=== PATIENT | female | born 1995 | race Caucasian/White ===

== ENCOUNTER 2017-08-15 17:10 | Emergency (ER) | payer SELFPAY ==
[~2017-08-15] VITALS: Ht 152.4 cm; Wt 38.6 kg
[~2017-08-15 17:10] MED LIST: ALPR0.25 PO; ONDA4TAB11 PO; ONDA4TAB8 PO; birth control PO
--- OUTSIDE RECORDS SUMMARY | 2017-08-15 17:17 | XMS REPORT ---
Author Author KESHA STEWART Organization [facility] Address [address] [place] [address] Care Team Providers Care Director Of Officiating Name Role Phone STEWART KESHA Unavailable PROBLEMS Type Condition ICD9-CM Code [id number] Code Onset Dates Condition Status SNOMED Code Problem History of anorexia nervosa Z86.59 Active 214006483 Problem Family history of diabetes mellitus Z83.3 Active 070315647 Problem Family history of heart disease Z82.49 Active 284112863 Problem Hx of self mutilation Z86.59 Active 861397603 Problem Dental caries K02.9 Active 60132961 Problem Heart palpitations R00.2 Active 82810049 Problem Malnutrition E46 Active 2607410 Problem Severe episode of recurrent major depressive disorder, without psychotic features F33.2 Active 20367706 Problem Routine health maintenance Z00.00 Active 383172149 Problem Dysuria R30.0 Active 38860641 Problem Generalized anxiety disorder F41.1 Active 73824280 Problem Major depression, chronic F32.9 Active 988213374 ALLERGIES Unknown Allergies SOCIAL HISTORY No smoking Hx information available PLAN OF CARE VITAL SIGNS MEDICATIONS Medication Instructions Dosage Frequency Start Date End Date Duration Status Atorvastatin Calcium 10 mg Orally Once a day 1 tablet 24h Mar, 30 day(s) Active RESULTS No Results PROCEDURES No Known procedures IMMUNIZATIONS No Known Immunizations
--- OUTSIDE RECORDS SUMMARY | 2017-08-15 17:17 | XMS REPORT ---
Author Author JIM REHMAN [facility] eClinicalWorks Address Unknown Phone Unavailable Care Team Providers Care Battery Stacker Name Role Phone JIM REHMAN CP Unavailable Allergies, Adverse Reactions, Alerts Substance Reaction Event Type N.K.D.A. Info Not Available Non Drug Allergy Problems Problem Type Condition Code Onset Dates Condition Status Problem History of recurrent UTIs Z87.440 Active Assessment Polyuria R35.8 Active Problem Polyuria R35.8 Active Assessment History of recurrent UTIs Z87.440 Active Medications Medication Code System Code Instructions Start Date End Date Status Dosage Iron [facility] [address] 325 (65 Fe) MG Orally Once a day 1 tablet Zyrtec Allergy [facility] [address]-51 10 MG Orally Once a day 1 tablet as needed AZO Cranberry [facility] [address] 250-30 MG Orally not defined Procedures Procedure Coding System Code Date Office Visit, New Pt., Level 4 CPT-4 81890 Jan 15, 2015 URINALYSIS, AUTO, W/O SCOPE CPT-4 90269 Jan 15, 2015 Vital Signs Date/Time: Jan 15, 2015 Temperature 98.2 F Weight 90.4 lbs Height 57 in BMI 19.56 Index Blood Pressure Diastolic 76 mmHg Blood Pressure Systolic 110 mmHg Cardiac Monitoring Heart Rate 88 bpm BMIPercentile 22.07 % Wt Percentile 0.27 % Results No Known Results Summary Purpose eClinicalWorks Submission
--- OUTSIDE RECORDS SUMMARY | 2017-08-15 17:17 | XMS REPORT ---
Author Author GABRIEL Walters Organization [facility] Address Unknown Care Team Providers Care Account Maintenance Representative Name Role Phone brittneeGABRIEL Brambila Unavailable PROBLEMS Type Condition ICD9-CM Code [id number] Code Onset Dates Condition Status SNOMED Code Problem History of anorexia nervosa Z86.59 Active 607880039 Problem Family history of diabetes mellitus Z83.3 Active 866980163 Problem Family history of heart disease Z82.49 Active 418477175 Problem Hx of self mutilation Z86.59 Active 627070231 Problem Dental caries K02.9 Active 52075588 Problem Heart palpitations R00.2 Active 11884636 Problem Malnutrition E46 Active 1427753 Problem Severe episode of recurrent major depressive disorder, without psychotic features F33.2 Active 71209723 Problem Routine health maintenance Z00.00 Active 911324428 Problem Dysuria R30.0 Active 14940323 Problem Generalized anxiety disorder F41.1 Active 94759140 Problem Major depression, chronic F32.9 Active 719249144 ALLERGIES Substance Reaction Event Type Date Status N.K.D.A. Unknown Non Drug Allergy Mar, Unknown SOCIAL HISTORY No smoking Hx information available PLAN OF CARE VITAL SIGNS Height 57 in 2016-03-24 Blood pressure systolic 123 mmHg 2016-03-24 Blood pressure diastolic 89 mmHg 2016-03-24 MEDICATIONS Medication Instructions Dosage Frequency Start Date End Date Duration Status Multi For Her - Active Iron 325 (65 Fe) MG Orally Once a day 1 tablet 24h Active Atorvastatin Calcium 10 mg Orally Once a day 1 tablet 24h Mar, 30 day(s) Active Zyrtec Allergy 10 MG Orally Once a day 1 tablet as needed 24h Active AZO Cranberry 250-30 MG Active RESULTS No Results PROCEDURES Procedure Date Ordered Related Diagnosis Body Site EXTRAC ERUPTED TOOTH/EXPOSED ROOT Mar 24, 2016 IMMUNIZATIONS No Known Immunizations
--- OUTSIDE RECORDS SUMMARY | 2017-08-15 17:17 | XMS REPORT ---
Author Author KESHA STEWART Organization [employer] Address Unknown Phone Unavailable Care Team Providers Care Pantograph Machine Set Up Operator Name Role Phone KESHA STEWART CP Unavailable Allergies, Adverse Reactions, Alerts Substance Reaction Event Type N.K.D.A. Info Not Available Non Drug Allergy Problems Problem Type Condition Code Onset Dates Condition Status Problem Personal history of urinary infection Z87.440 Active Problem Polyuria R35.8 Active Problem Hyperlipidemia, unspecified hyperlipidemia E78.5 Active Problem History of recurrent UTIs Z87.440 Active Medications Medication Code System Code Instructions Start Date End Date Status Dosage Zyrtec Allergy [facility] [address]-67 10 MG Orally Once a day 1 tablet as needed AZO Cranberry [facility] [address] 250-30 MG Orally not defined Multi For Her [facility] [address] - Orally not defined Results No Known Results Summary Purpose eClinicalWorks Submission
--- OUTSIDE RECORDS SUMMARY | 2017-08-15 17:17 | XMS REPORT ---
Author Author AMADO MACDONALD [facility] eClinicalWorks Address Unknown Phone Unavailable Care Team Providers Care Injection Molding Machine Offbearer Name Role Phone AMADO MACDONALD CP Unavailable Allergies No Known Allergies Problems Problem Type Condition Code Onset Dates Condition Status Problem Personal history of urinary infection Z87.440 Active Problem Polyuria R35.8 Active Problem Hyperlipidemia, unspecified hyperlipidemia E78.5 Active Problem History of recurrent UTIs Z87.440 Active Assessment Personal history of urinary infection Z87.440 Active Medications No Known Medications Procedures Procedure Coding System Code Date URINE CULTURE/COLONY COUNT CPT-4 63566 Feb 20, 2015 Results No Known Results Summary Purpose eClinicalWorks Submission
--- OUTSIDE RECORDS SUMMARY | 2017-08-15 17:17 | XMS REPORT ---
Author Author GABRIEL Walters [facility] Address Unknown Care Team Providers Care Pizzamaker Name Role Phone brittneePatty GABRIEL Unavailable PROBLEMS Type Condition ICD9-CM Code [id number] Code Onset Dates Condition Status SNOMED Code Problem History of anorexia nervosa Z86.59 Active 125125052 Problem Family history of diabetes mellitus Z83.3 Active 328513688 Problem Family history of heart disease Z82.49 Active 996540301 Problem Hx of self mutilation Z86.59 Active 785227319 Problem Dental caries K02.9 Active 28081804 Problem Heart palpitations R00.2 Active 55450580 Problem Malnutrition E46 Active 6831212 Problem Severe episode of recurrent major depressive disorder, without psychotic features F33.2 Active 78722261 Problem Routine health maintenance Z00.00 Active 900121097 Problem Dysuria R30.0 Active 64449654 Problem Generalized anxiety disorder F41.1 Active 31726050 Problem Major depression, chronic F32.9 Active 417989936 ALLERGIES Substance Reaction Event Type Date Status N.K.D.A. Unknown Non Drug Allergy Mar, Unknown SOCIAL HISTORY No smoking Hx information available PLAN OF CARE Activity Details Follow Up prn Reason:te/filling VITAL SIGNS Height 57 in 2016-03-11 Blood pressure systolic 121 mmHg 2016-03-11 Blood pressure diastolic 84 mmHg 2016-03-11 MEDICATIONS Medication Instructions Dosage Frequency Start Date End Date Duration Status Zyrtec Allergy 10 MG Orally Once a day 1 tablet as needed 24h Active [place] 5-325 MG Orally every 6 hrs 1 tablet as needed 6h Mar, Mar, 4 days Active Amoxicillin 500 MG Orally Four times a day 1 capsule 6h Mar, Mar, 7 days Active RESULTS No Results PROCEDURES Procedure Date Ordered Related Diagnosis Body Site LTD ORAL EVALUATION - PROBLEM FOCUS Mar 11, 2016 INTRAORL-PERIAPICAL 1 FILM 30580 Mar 11, 2016 BITEWINGS - TWO FILMS Mar 11, 2016 INTRAORL-PERIAPICAL EA ADD FILM Mar 11, 2016 IMMUNIZATIONS No Known Immunizations
--- OUTSIDE RECORDS SUMMARY | 2017-08-15 17:17 | XMS REPORT ---
Author Author GABRIEL MAYA [facility] Address [address] [place] [address] Care Team Providers Care Engine Lathe Set Up Operator Name Role Phone GABRIEL MAYA Unavailable PROBLEMS Type Condition ICD9-CM Code [id number] Code Onset Dates Condition Status SNOMED Code Problem History of anorexia nervosa Z86.59 Active 628427605 Problem Family history of diabetes mellitus Z83.3 Active 285013334 Problem Family history of heart disease Z82.49 Active 414237138 Problem Hx of self mutilation Z86.59 Active 455905180 Problem Dental caries K02.9 Active 03296628 Problem Heart palpitations R00.2 Active 58290531 Problem Malnutrition E46 Active 5908733 Problem Severe episode of recurrent major depressive disorder, without psychotic features F33.2 Active 76612642 Problem Routine health maintenance Z00.00 Active 010276910 Problem Dysuria R30.0 Active 80061796 Problem Generalized anxiety disorder F41.1 Active 66141882 Problem Major depression, chronic F32.9 Active 988646922 ALLERGIES Unknown Allergies SOCIAL HISTORY No smoking Hx information available PLAN OF CARE Activity Details Follow Up 2 Weeks Reason:Depression, anxiety VITAL SIGNS MEDICATIONS Unknown Medications RESULTS No Results PROCEDURES Procedure Date Ordered Related Diagnosis Body Site Psychotherapy, patient &/family, 30 minutes, established patient Mar 24, 2016 IMMUNIZATIONS No Known Immunizations
--- OUTSIDE RECORDS SUMMARY | 2017-08-15 17:17 | XMS REPORT ---
Author AMADO Azar [facility] eClinicalWorks Address Unknown Phone Unavailable Care Team Providers Care Laydown Machine Operator Name Role Phone AMADO MACDONALD Unavailable Allergies No Known Allergies Problems Problem Type Condition Code Onset Dates Condition Status Problem Polyuria R35.8 Active Problem History of recurrent UTIs Z87.440 Active Problem Personal history of urinary infection Z87.440 Active Assessment Personal history of urinary infection Z87.440 Active Medications No Known Medications Results No Known Results Summary Purpose eClinicalWorks Submission
--- OUTSIDE RECORDS SUMMARY | 2017-08-15 17:17 | XMS REPORT ---
Author Author GABRIEL MAYA [facility] Address [address] [place] [address] Care Team Providers Care Horizontal Boring Mill Operator Name Role Phone GABRIEL MAYA Unavailable PROBLEMS Type Condition ICD9-CM Code VSI26-IR Code Onset Dates Condition Status SNOMED Code Problem History of anorexia nervosa Z86.59 Active 460983232 Problem Family history of diabetes mellitus Z83.3 Active 003756236 Problem Family history of heart disease Z82.49 Active 469182951 Problem Hx of self mutilation Z86.59 Active 120255403 Problem Dental caries K02.9 Active 59040728 Problem Heart palpitations R00.2 Active 12818025 Problem Malnutrition E46 Active 5456175 Problem Severe episode of recurrent major depressive disorder, without psychotic features F33.2 Active 81501254 Problem Routine health maintenance Z00.00 Active 683770748 Problem Dysuria R30.0 Active 97010401 Problem Generalized anxiety disorder F41.1 Active 31027878 Problem Major depression, chronic F32.9 Active 810544164 ALLERGIES Unknown Allergies SOCIAL HISTORY No smoking Hx information available PLAN OF CARE Activity Details Follow Up 2 Weeks Reason:Depression VITAL SIGNS MEDICATIONS Unknown Medications RESULTS No Results PROCEDURES Procedure Date Ordered Related Diagnosis Body Site Psychotherapy, patient &/family, 30 minutes, established patient Apr 01, 2016 IMMUNIZATIONS No Known Immunizations
--- OUTSIDE RECORDS SUMMARY | 2017-08-15 17:18 | XMS REPORT ---
Author Author GABRIEL MAYA [facility] Address [address] [place] [address] Care Team Providers Care Party Host Name Role Phone GABRIEL MAYA Unavailable PROBLEMS Type Condition ICD9-CM Code [id number] Code Onset Dates Condition Status SNOMED Code Problem Dental caries K02.9 Active 32715141 Problem History of anorexia nervosa Z86.59 Active 791802181 Problem Heart palpitations R00.2 Active 12071414 Assessment Severe episode of recurrent major depressive disorder, without psychotic features F33.2 Mar, Active 61171268 Problem Hx of self mutilation Z86.59 Active 042962090 Problem Severe episode of recurrent major depressive disorder, without psychotic features F33.2 Active 14621375 Problem Generalized anxiety disorder F41.1 Active 63762558 Problem Family history of diabetes mellitus Z83.3 Active 099879456 Problem Family history of heart disease Z82.49 Active 714059875 Problem Routine health maintenance Z00.00 Active 255418456 Problem Dysuria R30.0 Active 08433153 ALLERGIES Unknown Allergies SOCIAL HISTORY No smoking Hx information available PLAN OF CARE VITAL SIGNS MEDICATIONS Unknown Medications RESULTS No Results PROCEDURES Procedure Date Ordered Related Diagnosis Body Site Psych diagnostic evaluation, new patient Mar 12, 2016 IMMUNIZATIONS No Known Immunizations
--- OUTSIDE RECORDS SUMMARY | 2017-08-15 17:18 | XMS REPORT ---
Author Author JIM REHMAN [facility] eClinicalWorks Address Unknown Phone Unavailable Care Team Providers Care Plant Custodian Name Role Phone JIM REHMAN CP Unavailable Allergies No Known Allergies Problems Problem Type Condition Code Onset Dates Condition Status Problem History of recurrent UTIs Z87.440 Active Assessment Polyuria R35.8 Active Problem Polyuria R35.8 Active Assessment History of recurrent UTIs Z87.440 Active Medications No Known Medications Procedures Procedure Coding System Code Date COMPREHEN METABOLIC PANEL CPT-4 91844 Jan 16, 2015 ASSAY THYROID STIM HORMONE CPT-4 12395 Jan 16, 2015 COMPLETE CBC W/AUTO DIFF WBC CPT-4 36766 Jan 16, 2015 VENIPUNCT, ROUTINE* CPT-4 72654 Jan 16, 2015 LIPID PANEL CPT-4 12506 Jan 16, 2015 Results Name Result Date Reference Range Unit Abnormality Flag ROUTINE VENIPUNCTURE Summary Purpose eClinicalWorks Submission
--- OUTSIDE RECORDS SUMMARY | 2017-08-15 17:18 | XMS REPORT ---
Author Author GABRIEL MAYA [facility] Address [address] [place] [address] Care Team Providers Care Job Analysis Manager Name Role Phone GABRIEL MAYA Unavailable PROBLEMS Type Condition ICD9-CM Code BEZ05-CS Code Onset Dates Condition Status SNOMED Code Problem History of anorexia nervosa Z86.59 Active 933118613 Problem Family history of diabetes mellitus Z83.3 Active 547294197 Problem Family history of heart disease Z82.49 Active 159340572 Problem Hx of self mutilation Z86.59 Active 518399831 Problem Dental caries K02.9 Active 08408647 Problem Heart palpitations R00.2 Active 11675504 Problem Malnutrition E46 Active 1570164 Problem Severe episode of recurrent major depressive disorder, without psychotic features F33.2 Active 03076190 Problem Routine health maintenance Z00.00 Active 569943075 Problem Dysuria R30.0 Active 26082402 Problem Generalized anxiety disorder F41.1 Active 19309010 Problem Major depression, chronic F32.9 Active 415697399 ALLERGIES Unknown Allergies SOCIAL HISTORY No smoking Hx information available PLAN OF CARE Activity Details Follow Up 1 Week Reason:Depression VITAL SIGNS MEDICATIONS Unknown Medications RESULTS No Results PROCEDURES Procedure Date Ordered Related Diagnosis Body Site Psychotherapy, patient &/family, 30 minutes, established patient Mar 17, 2016 IMMUNIZATIONS No Known Immunizations
--- OUTSIDE RECORDS SUMMARY | 2017-08-15 17:18 | XMS REPORT ---
Author Author JIM REHMAN [facility] eClinicalWorks Address Unknown Phone Unavailable Care Team Providers Care Community Planner Name Role Phone JIM REHMAN CP Unavailable Allergies No Known Allergies Problems Problem Type Condition Code Onset Dates Condition Status Problem Personal history of urinary infection Z87.440 Active Problem Polyuria R35.8 Active Problem Hyperlipidemia, unspecified hyperlipidemia E78.5 Active Problem History of recurrent UTIs Z87.440 Active Assessment Hyperlipidemia, unspecified hyperlipidemia E78.5 Active Medications No Known Medications Results No Known Results Summary Purpose eClinicalWorks Submission
--- OUTSIDE RECORDS SUMMARY | 2017-08-15 17:18 | XMS REPORT | Continuity of Care Document ---
Author Author [facility] Address Unknown Phone Unavailable Allergies Active Description Code Type Severity Reaction Onset Reported/Identified Relationship to Patient Clinical Status Yes NKANo Known Allergies NKA Miscellaneous Allergy Mild N/A 10/28/2008 Medications There is no data. Problems Date Dx Coded Attending Type Code Diagnosis Diagnosed By 07/25/2013 DANIEL AGUILAR APRN 626.0 ABSENCE OF MENSTRUATION 07/25/2013 AMADO MACDONALD DO 626.0 ABSENCE OF MENSTRUATION 07/25/2013 YASMIN CASHKIMI REJOGGER, MERRY N 626.0 ABSENCE OF MENSTRUATION 07/25/2013 RAJOTTE REJOGGER, NAMRATA A 626.0 ABSENCE OF MENSTRUATION 07/25/2013 RAJOTTE REJOGGER, NAMRATA A 626.0 ABSENCE OF MENSTRUATION 09/05/2013 AMADO MACDONALD DO K V74.1 TB SCREENING 09/05/2013 HOFFMAN CASHERO REJOGGER, MERRY N V74.1 TB SCREENING 09/05/2013 RAJOTTE REJOGGER, NAMRATA A V74.1 TB SCREENING 09/05/2013 RAJOTTE REJOGGER, NAMRATA A V74.1 TB SCREENING 04/17/2014 HOFFMAN CASHERO REJOGGER, MERRY N 780.60 FEVER UNSPECIFIED 04/17/2014 HOFFMAN CASHERO REJOGGER, MERRY N 786.2 COUGH 04/17/2014 HOFFMAN CASHERO REJOGGER, MERRY N 788.1 DYSURIA 04/17/2014 RAJOTTE REJOGGER, NAMRATA A 780.60 FEVER UNSPECIFIED 04/17/2014 RAJOTTE REJOGGER, NAMRATA A 786.2 COUGH 04/17/2014 RAJOTTE REJOGGER, NAMRATA A 788.1 DYSURIA 04/17/2014 RAJOTTE REJOGGER, NAMRATA A 780.60 FEVER UNSPECIFIED 04/17/2014 RAJOTTE REJOGGER, NAMRATA A 786.2 COUGH 04/17/2014 RAJOTTE REJOGGER, NAMRATA A 788.1 DYSURIA 06/27/2014 LLOYD PEREA, NAMRATA A 692.9 DERMATITIS CONTACT UNSPECIFIED 06/27/2014 LLOYD REJOGGER, NAMRATA A 692.9 DERMATITIS CONTACT UNSPECIFIED 07/11/2014 NAMRATA DESAI APRN A V03.89 MENINGOCOCCAL DX 01/01/2015 LESLIE ESQUIVEL AYLIN Kim Ot 427.89 CARDIAC DYSRHYTHMIAS NEC 01/01/2015 LESLIE ESQUIVEL AYLIN K Ot 787.01 NAUSEA WITH VOMITING 01/01/2015 SHAI NELSON DOA K Ot 790.29 OTHER ABNORMAL GLUCOSE 02/16/2015 ALEXANDRA AMAYA, PATRICIA A Ot F12.10 CANNABIS ABUSE, UNCOMPLICATED 02/16/2015 ALEXANDRA AMAYA, PATRICIA A Ot F17.210 NICOTINE DEPENDENCE, CIGARETTES, UNCOMPL 02/16/2015 ALEXANDRA AMAYA, PATRICIA A Ot R10.9 UNSPECIFIED ABDOMINAL PAIN 02/16/2015 PATRICIA MORRIS MD A Ot R11.2 NAUSEA WITH VOMITING, UNSPECIFIED 01/01/2016 LUCAS ENRIQUE Ot F17.210 NICOTINE DEPENDENCE, CIGARETTES, UNCOMPL 01/01/2016 LUCAS ENRIQUE Ot K92.0 HEMATEMESIS 01/01/2016 LUCAS ENRIQUE Ot R10.31 RIGHT LOWER QUADRANT PAIN 01/01/2016 LUCAS ENRIQUE Ot R11.2 NAUSEA WITH VOMITING, UNSPECIFIED 01/01/2016 LUCAS ENRIQUE Ot R19.7 DIARRHEA, UNSPECIFIED 01/02/2016 LUCAS ENRIQUE Ot F17.210 NICOTINE DEPENDENCE, CIGARETTES, UNCOMPL 01/02/2016 LUCAS ENRIQUE Ot K92.0 HEMATEMESIS 01/02/2016 LUCAS ENRIQUE Ot R10.31 RIGHT LOWER QUADRANT PAIN 01/02/2016 LUCAS ENRIQUE Ot R11.2 NAUSEA WITH VOMITING, UNSPECIFIED 01/02/2016 LUCAS ENRIQUE Ot R19.7 DIARRHEA, UNSPECIFIED Procedures Code [place] [address] TEST, URINE (IN- HOUSE) 07/25/2013 57548 ROUTINE VENIPUNCTURE 07/26/2013 30358 CBC 07/26/2013 31482 CMP 07/26/2013 8251803 GFR CALC (RESULT ONLY) 07/26/2013 67235 TSH 07/26/2013 37932 INSULIN LEVEL 07/27/2013 07488 TB TEST INTRADERMAL 09/05/2013 50131 INFLUENZA A & B (IN-HOUSE) 04/17/2014 Results Test Result Range Urine beta human chorionic gonadotropin (hCG) measurement - 01/01/16 17:27 Urine beta human chorionic gonadotropin (hCG) measurement NEGATIVE NEGATIVE Complete urinalysis with reflex to culture - 01/01/16 17:27 Urine color determination YELLOW NRG Urine clarity determination CLEAR NRG Urine pH measurement by test strip 7 5-9 Specific gravity of urine by test strip 1.005 1.016- 1.022 Urine protein assay by test strip, semi-quantitative NEGATIVE NEGATIVE Urine glucose detection by automated test strip NEGATIVE NEGATIVE Erythrocytes detection in urine sediment by light microscopy NEGATIVE NEGATIVE Urine ketones detection by automated test strip NEGATIVE NEGATIVE Urine nitrite detection by test strip NEGATIVE NEGATIVE Urine total bilirubin detection by test strip NEGATIVE NEGATIVE Urine urobilinogen measurement by automated test strip (mass/volume) NORMAL NORMAL Urine leukocyte esterase detection by dipstick 1+ NEGATIVE Automated urine sediment erythrocyte count by microscopy (number/high power field) NONE NRG Automated urine sediment leukocyte count by microscopy (number/high power field ) [HPF] NRG Bacteria detection in urine sediment by light microscopy FEW NRG Squamous epithelial cells detection in urine sediment by light microscopy 10-25 NRG Crystals detection in urine sediment by light microscopy NONE NRG Casts detection in urine sediment by light microscopy NONE NRG Mucus detection in urine sediment by light microscopy NEGATIVE NRG Complete urinalysis with reflex to culture NO NRG Complete blood count (CBC) with automated white blood cell (WBC) differential - 01/01/16 18:45 Blood leukocytes automated count (number/volume) 8.5 10*3/uL 4.3-11.0 Blood erythrocytes automated count (number/volume) 4.73 10*6/uL 4.35-5.85 Venous blood hemoglobin measurement (mass/volume) 14.2 g/dL 11.5-16.0 Blood hematocrit (volume fraction) 41 % 35-52 Automated erythrocyte mean corpuscular volume 88 [foz_us] 80-99 Automated erythrocyte mean corpuscular hemoglobin (mass per erythrocyte) 30 pg 25-34 Automated erythrocyte mean corpuscular hemoglobin concentration measurement ( mass/volume) 34 g/dL 32-36 Automated erythrocyte distribution width ratio 12.0 % 10.0-14.5 Automated blood platelet count (count/volume) 361 10*3/uL 130-400 Automated blood platelet mean volume measurement 10.5 [foz_us] 7.4-10.4 Automated blood neutrophils/100 leukocytes 72 % 42-75 Automated blood lymphocytes/100 leukocytes 21 % 12-44 Blood monocytes/100 leukocytes 5 % 0-12 Automated blood eosinophils/100 leukocytes 1 % 0-10 Automated blood basophils/100 leukocytes 0 % 0-10 Blood neutrophils automated count (number/volume) 6.1 10*3 1.8-7.8 Blood lymphocytes automated count (number/volume) 1.8 10*3 1.0-4.0 Blood monocytes automated count (number/volume) 0.4 10*3 0.0-1.0 Automated eosinophil count 0.1 10*3/uL 0.0-0.3 Automated blood basophil count (count/volume) 0.0 10*3/uL 0.0-0.1 PT panel in platelet poor plasma by coagulation assay - 01/01/16 18:45 Prothrombin time (PT) in platelet poor plasma by coagulation assay 13.0 s 12.2-14.7 INR in platelet poor plasma or blood by coagulation assay 1.0 0.8-1.4 Activated partial thromboplastin time (aPTT) in platelet poor plasma bycoagulation assay - 01/01/16 18:45 Activated partial thromboplastin time (aPTT) in platelet poor plasma bycoagulation assay 29 s 24-35 Comprehensive metabolic panel - 01/01/16 18:45 Serum or plasma sodium measurement (moles/volume) 144 mmol/L 135-145 Serum or plasma potassium measurement (moles/volume) 3.6 mmol/L 3.6-5.0 Serum or plasma chloride measurement (moles/volume) 106 mmol/L 98-107 Carbon dioxide 24 mmol/L 21-32 Serum or plasma anion gap determination (moles/volume) 14 mmol/L 5-14 Serum or plasma urea nitrogen measurement (mass/volume) 6 mg/dL 7-18 Serum or plasma creatinine measurement (mass/volume) 0.76 mg/dL 0.60-1.30 Serum or plasma urea nitrogen/creatinine mass ratio 8 NRG Serum or plasma creatinine measurement with calculation of estimated glomerular filtration rate > NRG Serum or plasma glucose measurement (mass/volume) 96 mg/dL 70-105 Serum or plasma calcium measurement (mass/volume) 10.4 mg/dL 8.5-10.1 Serum or plasma total bilirubin measurement (mass/volume) 0.2 mg/dL 0.1-1.0 Serum or plasma alkaline phosphatase measurement (enzymatic activity/volume) 91 U/L 40-136 Serum or plasma aspartate aminotransferase measurement (enzymatic activity/ volume) 20 U/L 5-34 Serum or plasma alanine aminotransferase measurement (enzymatic activity/volume ) 33 U/L 0-55 Serum or plasma protein measurement (mass/volume) 7.4 g/dL 6.4-8.2 Serum or plasma albumin measurement (mass/volume) 4.7 g/dL 3.2-4.5 CBC With Differential/Platelet - 03/12/16 12:08 WBC 8.0 x10E3/uL 3.4-10.8 RBC 4.88 x10E6/uL 3.77-5.28 Hemoglobin 14.9 g/dL 11.1-15.9 Hematocrit 42.9 % 34.0-46.6 MCV 88 fL 79-97 MCH 30.5 pg 26.6-33.0 MCHC 34.7 g/dL 31.5-35.7 RDW 12.6 % 12.3-15.4 Platelets 378 x10E3/uL 150-379 Neutrophils 71 % Lymphs 21 % Monocytes 7 % Eos 1 % Basos 0 % Neutrophils (Absolute) 5.7 x10E3/uL 1.4-7.0 Lymphs (Absolute) 1.6 x10E3/uL 0.7-3.1 Monocytes(Absolute) 0.5 x10E3/uL 0.1-0.9 Eos (Absolute) 0.1 x10E3/uL 0.0-0.4 Baso (Absolute) 0.0 x10E3/uL 0.0-0.2 Immature Granulocytes 0 % Immature Grans (Abs) 0.0 x10E3/uL 0.0-0.1 Comp. Metabolic Panel (14) - 03/12/16 12:08 Glucose, Serum 115 mg/dL 65-99 BUN 12 mg/dL 6-20 Creatinine, Serum 0.79 mg/dL 0.57-1.00 eGFR If NonAfricn Am 108 mL/min/1.73 >59 eGFR If Africn Am 125 mL/min/1.73 >59 BUN/Creatinine Ratio 15 8-20 Sodium, Serum 142 mmol/L 136-144 Potassium, Serum 4.1 mmol/L 3.5-5.2 Chloride, Serum 98 mmol/L 97-106 Carbon Dioxide, Total 28 mmol/L 18-29 Calcium, Serum 10.4 mg/dL 8.7-10.2 Protein, Total, Serum 7.9 g/dL 6.0-8.5 Albumin, Serum 5.1 g/dL 3.5-5.5 Globulin, Total 2.8 g/dL 1.5-4.5 A/G Ratio 1.8 1.1-2.5 Bilirubin, Total 0.3 mg/dL 0.0-1.2 Alkaline Phosphatase, S 114 IU/L 39-117 AST (SGOT) 16 IU/L 0-40 ALT (SGPT) 10 IU/L 0-32 Lipid Panel - 03/12/16 12:08 Cholesterol, Total 299 mg/dL 100-199 Triglycerides 108 mg/dL 0-149 HDL Cholesterol 71 mg/dL >39 VLDL Cholesterol Vasyl 22 mg/dL 5-40 LDL Cholesterol Calc 206 mg/dL 0-99 Comment: Comment Hemoglobin A1c - 03/12/16 12:08 Hemoglobin A1c 5.4 % 4.8-5.6 Folate (Folic Acid), Serum - 03/12/16 12:08 Folate (Folic Acid), Serum >20.0 ng/mL >3.0 Vitamin D, 25-Hydroxy - 03/12/16 12:08 Vitamin D, 25-Hydroxy 32.5 ng/mL 30.0-100.0 Thyroid Buchanan Profile - 03/12/16 12:08 TSH 0.670 uIU/mL 0.450-4.500 Vitamin B12 - 03/12/16 12:08 Vitamin B12 358 pg/mL 211-946 Urine Culture, Routine - 03/12/16 12:08 Urine Culture, Routine Note Urinalysis, Complete - 01/18/17 14:26 Specific [place] 1.009 1.005-1.030 pH 6.5 5.0-7.5 Urine-Color Yellow Yellow Appearance Clear Clear WBC Esterase Trace Negative Protein Negative Negative/Trace Glucose Negative Negative Ketones Negative Negative Occult Blood 2+ Negative Bilirubin Negative Negative Urobilinogen,Semi-Qn 0.2 mg/dL 0.2-1.0 Nitrite, Urine Negative Negative Microscopic Examination See below: Microscopic Examination - 01/18/17 14:26 WBC 0-5 /hpf 0 - 5 RBC 0-2 /hpf 0 - 2 Epithelial Cells (non renal) 0-10 /hpf 0 - 10 Bacteria Few None seen/Few UA W/ MICROSCOPY - 01/18/17 14:26 Specific [place] 1.009 1.005-1.030 pH 6.5 5.0-7.5 Urine-Color Yellow Yellow Appearance Clear Clear WBC Esterase Trace Negative Protein Negative Negative/Trace Glucose Negative Negative Ketones Negative Negative Occult Blood 2+ Negative Bilirubin Negative Negative Urobilinogen,Semi-Qn 0.2 mg/dL 0.2-1.0 Nitrite, Urine Negative Negative Microscopic Examination See below: NRG WBC 0-5 /hpf 0 - 5 RBC 0-2 /hpf 0 - 2 Epithelial Cells (non renal) 0-10 /hpf 0 - 10 Mucus Threads NRG Bacteria Few None seen/Few Epithelial Cells (renal) NRG Casts NRG Cast Type NRG Crystals NRG Crystal Type NRG Yeast NRG Trichomonas NRG Comment NRG CBC With Differential/Platelet - 01/22/17 14:26 WBC 12.0 x10E3/uL 3.4-10.8 RBC 4.58 x10E6/uL 3.77-5.28 Hemoglobin 13.7 g/dL 11.1-15.9 Hematocrit 41.2 % 34.0-46.6 MCV 90 fL 79-97 MCH 29.9 pg 26.6-33.0 MCHC 33.3 g/dL 31.5-35.7 RDW 13.3 % 12.3-15.4 Platelets 359 x10E3/uL 150-379 Neutrophils 78 % Not Estab. Lymphs 13 % Not Estab. Monocytes 8 % Not Estab. Eos 1 % Not Estab. Basos 0 % Not Estab. Neutrophils (Absolute) 9.3 x10E3/uL 1.4-7.0 Lymphs (Absolute) 1.6 x10E3/uL 0.7-3.1 Monocytes(Absolute) 1.0 x10E3/uL 0.1-0.9 Eos (Absolute) 0.1 x10E3/uL 0.0-0.4 Baso (Absolute) 0.0 x10E3/uL 0.0-0.2 Immature Granulocytes 0 % Not Estab. Immature Grans (Abs) 0.0 x10E3/uL 0.0-0.1 Comp. Metabolic Panel (14) - 01/22/17 14:26 Glucose, Serum 93 mg/dL 65-99 BUN 11 mg/dL 6-20 Creatinine, Serum 0.74 mg/dL 0.57-1.00 eGFR If NonAfricn Am 116 mL/min/1.73 >59 eGFR If Africn Am 134 mL/min/1.73 >59 BUN/Creatinine Ratio 15 9-23 Sodium, Serum 141 mmol/L 134-144 Potassium, Serum 4.7 mmol/L 3.5-5.2 Chloride, Serum 100 mmol/L 96-106 Carbon Dioxide, Total 24 mmol/L 18-29 Calcium, Serum 9.6 mg/dL 8.7-10.2 Protein, Total, Serum 6.8 g/dL 6.0-8.5 Albumin, Serum 4.5 g/dL 3.5-5.5 Globulin, Total 2.3 g/dL 1.5-4.5 A/G Ratio 2.0 1.2-2.2 Bilirubin, Total 0.3 mg/dL 0.0-1.2 Alkaline Phosphatase, S 101 IU/L 39-117 AST (SGOT) 28 IU/L 0-40 ALT (SGPT) 41 IU/L 0-32 Lipid Panel - 01/22/17 14:26 Cholesterol, Total 215 mg/dL 100-199 Triglycerides 114 mg/dL 0-149 HDL Cholesterol 60 mg/dL >39 VLDL Cholesterol Vasyl 23 mg/dL 5-40 LDL Cholesterol Calc 132 mg/dL 0-99 Hemoglobin A1c - 01/22/17 14:26 Hemoglobin A1c 5.3 % 4.8-5.6 Thyroid Buchanan Profile - 01/22/17 14:26 TSH 0.332 uIU/mL 0.450-4.500 Thyroxine (T4) Free, Direct, S - 01/22/17 14:26 T4,Free (Direct) 1.03 ng/dL 0.82-1.77 T3Free - 01/22/17 14:26 Triiodothyronine, Free, Serum 3.2 pg/mL 2.0-4.4 Interpretive Comment Comment A1C - 01/22/17 14:26 Hemoglobin A1c 5.3 % 4.8-5.6 Encounters ACCT No. Visit Date/Time Discharge Status Pt. Type Provider Facility Loc./Unit Complaint [id number] 07/11/2014 13:25:00 07/11/2014 23:59:59 CLS Outpatient NAMRATA DESAI APRN [id number] 06/27/2014 09:37:00 06/27/2014 23:59:59 CLS Outpatient NAMRATA DESAI APRN [id number] 04/17/2014 10:27:00 04/17/2014 23:59:59 CLS Outpatient MERRY MAGANA APRN [place] [id number] 09/05/2013 12:19:00 09/05/2013 23:59:59 CLS Outpatient TORRES ESQUIVEL AMADO K [id number] 07/26/2013 08:05:00 07/26/2013 23:59:59 CLS Outpatient ZOILA AGUILAR APRNDENISE Duncan [id number] 03/13/2016 13:06:00 Document Registration [id number] 03/14/2016 07:06:00 Document Registration [id number] 01/25/2017 17:07:00 Document Registration [id number] 12/31/2014 23:07:14 ACT Document Registration [id number] 01/01/2016 17:22:00 01/01/2016 19:51:00 DIS Emergency LUCAS ENRIQUE [facility] ER VOMITING BLOOD [id number] 02/16/2015 01:27:00 02/16/2015 02:50:00 DIS Emergency PATRICIA MORRIS MD [facility] ER VOMITING,SHAKEY,ANXIETY [id number] 12/31/2014 23:06:00 01/01/2015 01:25:00 DIS Emergency LESLIE DOAYLIN K [facility] ER VOMITING [id number] 01/19/2017 10:10:00 Document Registration [id number] 05/21/2017 15:55:00 05/21/2017 23:59:59 CLS Outpatient KESHA [facility] [id number] 01/22/2017 10:40:00 Document Registration [id number] 01/18/2017 13:40:00 Document Registration
--- OUTSIDE RECORDS SUMMARY | 2017-08-15 17:18 | XMS REPORT ---
Author Author Karly Weiner Organization [facility] Address [address] [place], [place] [id number] Care Team Providers Care Joy Operator Helper Name Role Phone Karly Weiner PCP Unavailable Allergies and Adverse Reactions Name Reaction Notes No known drug allergy Plan of Treatment Not available. Medications Not available. Problem List Not available. Vital Signs Date Time BP-Sys(mm[Hg] BP-Kierra(mm[Hg]) HR(bpm) RR(rpm) Temp WT HT HC BMI BSA BMI Percentile O2 Sat(%) 01/22/2017 7:10:00 PM 110 mmHg 68 mmHg 102 bpm 18 rpm 99 F 83 lbs 57 in 17.96 kg/m2 1.23 m2 97 % Social History Name Description Comments Tobacco Never smoker Alcohol Never History of Procedures Date Ordered Description Order Status 01/22/2017 12:00 AM X-RAY EXAM BREASTBONE 2/>VWS Reviewed 01/22/2017 12:00 AM X-RAY EXAM UNILAT RIBS/CHEST Reviewed Results Summary Not available. History Of Immunizations Not available. History of Past Illness Name Date of Onset Comments Sternum pain Jan 22 2017 7:14PM Clavicle pain Jan 22 2017 7:14PM Payers Not available. History of Encounters Visit Date Visit Type Provider 01/22/2017 Office visit Karly Weiner APRN
[2017-08-15] MEDS ORDERED: SULF1TAB35 PO (17:32)
--- NOTE | 2017-08-15 17:33 | ED Integumentary General ---
General Chief Complaint: Skin/Wound Problems Stated Complaint: TICKS Source: patient Exam Limitations: no limitations History of Present Illness Date Seen by Provider: August 15, 2017 Time Seen by Provider: 17:29 Initial Comments To ER with complaints of "cedar ticks" . She denies actually having seen the ticks, only has itchy sores all over that began yesterday. She's been applying black fingernail azeri to all of these sores so it is very difficult to actually evaluate the lesions. No fevers or chills. She denies drug use. Timing/Duration: just prior to arrival, yesterday Severity: moderate Possible Cause: insect bite Allergies and Home Medications Allergies Coded Allergies: NKANo Known Allergies (Unverified Allergy, Mild, 10/28/08) Home Medications Alprazolam 0.25 Mg Tablet, 0.25 MG PO TID PRN for ANXIETY Prescribed by: PATRICIA MORRIS on 02/16/15 0247 Ondansetron 4 Mg Tab.rapdis, 4 MG PO Q6H PRN for NAUSEA/VOMITING Prescribed by: LUCAS FRANCO on 01/01/16 1940 Patient Home Medication List Home Medication List Reviewed: Yes Constitutional: see HPI EENTM: see HPI Respiratory: no symptoms reported Cardiovascular: no symptoms reported Genitourinary: no symptoms reported Musculoskeletal: no symptoms reported Skin: see HPI Psychiatric/Neurological: No Symptoms Reported Past Dctdlyi-Fnmmik-Deqlzp Hx Patient Social History Type Used: Cigarettes Recent Foreign Travel: No Contact w/Someone Who Travel: No Recent Hopitalizations: No Seasonal Allergies Seasonal Allergies: No Past Medical History Adenoidectomy, Tonsillectomy Reproductive Disorders: No Female Reproductive Disorders: Denies Adverse Reaction/Blood Tranf: No Family Medical History No Pertinent Family Hx Physical Exam Vital Signs Capillary Refill : General Appearance: WD/WN, no apparent distress HEENT: PERRL/EOMI, normal ENT inspection Neck: non-tender, full range of motion Respiratory: normal breath sounds, no respiratory distress, no accessory muscle use Gastrointestinal: normal bowel sounds, non tender, soft Neurologic/Psychiatric: alert, normal mood/affect, oriented x 3 Skin: normal color, warm/dry, other (Multiple superficial sores to the posterior shoulders, chest forearms. Again it's very difficult to evaluate these because she has covered all of them in black fingernail azeri. There are no abscesses.) Departure Impression Primary Impression: Skin lesions Disposition: HOME, SELF-CARE Condition: Stable Departure-Patient Inst. Decision time for Depature: 17:31 Referrals: NO,LOCAL PHYSICIAN (PCP/Family) Primary Care Physician Patient Instructions: NO INSTRUCTIONS GIVEN Add. Discharge Instructions: 1. Antibiotics as directed 2. Return to ER for any concerns 3. All discharge instructions reviewed with patient and/or family. Voiced understanding. Scripts Sulfamethoxazole/Trimethoprim (Bactrim Ds Tablet) 1 Each Tablet 1 EACH PO BID, #14 TAB Prov: JHONATAN FERRARA APRN 08/15/17 JHONATAN FERRARA APRN August 15, 2017 17:32
[2017-08-15 17:40] VITALS: BP 118/70
== END 2017-08-15 17:40 | disposition home or self-care (01) ==
LOC: EDUNIT# 17:10 → ER 17:12
DX: L98.9 Disorder of the skin and subcutaneous tissue, unspecified (principal); Z90.89 Acquired absence of other organs
CPT/HCPCS: 99282

== ENCOUNTER 2017-11-13 16:19 | Emergency (ER) | payer SELFPAY ==
[~2017-11-13] VITALS: Ht 144.8 cm; Wt 38.6 kg
[~2017-11-13 16:19] MED LIST changes: +SULF1TAB35 PO
--- NOTE | 2017-11-13 16:58 | ED Integumentary General ---
General Chief Complaint: Bite-Animal/Human/Insect Stated Complaint: BUG BITES Nursing Triage Note: ARRIVED VIA AMB TO ROOM 09. STATES SHE VISITED A FRIEND IN [place] LAST WEEK AND CAME HOME WITH MULTIPLE BITES ALL OVER BODY. Source: patient Exam Limitations: no limitations History of Present Illness Date Seen by Provider: Nov 13, 2017 Time Seen by Provider: 16:53 Initial Comments To ER with reports of bug bites all over her body since staying with a friend in [place] last week. She asserts that she has not used methamphetamines since July of this year. Timing/Duration: constant Severity: moderate Location: torso, extremities Allergies and Home Medications Allergies Coded Allergies: NKANo Known Allergies (Unverified Allergy, Mild, 10/28/08) Home Medications Alprazolam 0.25 Mg Tablet, 0.25 MG PO TID PRN for ANXIETY Prescribed by: PATRICIA MORRIS on 02/16/15 0247 Ondansetron 4 Mg Tab.rapdis, 4 MG PO Q6H PRN for NAUSEA/VOMITING Prescribed by: LUCAS FRANCO on 01/01/16 1940 Sulfamethoxazole/Trimethoprim 1 Each Tablet, 1 EACH PO BID Prescribed by: JHONATAN FERRARA on 08/15/17 1732 Patient Home Medication List Home Medication List Reviewed: Yes Constitutional: see HPI EENTM: see HPI Respiratory: no symptoms reported Cardiovascular: no symptoms reported Genitourinary: no symptoms reported Musculoskeletal: no symptoms reported Skin: see HPI Psychiatric/Neurological: No Symptoms Reported Endocrine: No Symptoms Reported Past Ucazzmr-Pgjkha-Rxvvdx Hx Patient Social History Type Used: Cigarettes Recent Foreign Travel: No Contact w/Someone Who Travel: No Recent Infectious Disease Expo: No Recent Hopitalizations: No Seasonal Allergies Seasonal Allergies: No Past Medical History Surgeries: Yes Adenoidectomy, Tonsillectomy Respiratory: No Cardiac: Yes (TACHYCARDIA--HEART RATE ALWAYS 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- "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") Neurological: No Reproductive Disorders: No Female Reproductive Disorders: Denies Gastrointestinal: No Musculoskeletal: No Endocrine: No Cancer: No Psychosocial: No Integumentary: No Blood Disorders: No Adverse Reaction/Blood Tranf: No Family Medical History No Pertinent Family Hx Physical Exam Vital Signs Vital Signs - First Documented 11/13/17 16:28 Temp 98.0 Pulse 71 Resp 16 B/P (MAP) 100/86 (91) Pulse Ox 99 O2 Delivery Room Air Capillary Refill : Less Than 3 Seconds General Appearance: WD/WN, no apparent distress HEENT: PERRL/EOMI, normal ENT inspection Neck: non-tender, full range of motion Respiratory: no respiratory distress, no accessory muscle use Neurologic/Psychiatric: alert, normal mood/affect, oriented x 3 Skin: normal color, warm/dry, other (multiple small half centimeter lesions to the arms and abdomen only where she can reach. The parts of her back that are unreachable by her hands do not have any lesions. She has put fingernail mosotho and calamine lotion over these sores. I discussed possibility of scabies versus a delusional parasite ptosis. Her boyfriend at the bedside has similar lesions and states that he can see little black bugs burrowing beneath the skin that try to bite him. I believe this is a delusional parasitosis/skin picking behavior. However, they believe that is impossible in this must be something like scabies.) Progress/Results/Core Measures Results/Orders Vital Signs/I&O 11/13/17 16:28 Temp 98.0 Pulse 71 Resp 16 B/P (MAP) 100/86 (91) Pulse Ox 99 O2 Delivery Room Air Blood Pressure Mean: 91 Departure Impression Primary Impression: Skin lesions Disposition: 01 HOME, SELF-CARE Condition: Stable Admissions Decision to Admit Reason: Admit from ER (General) Departure-Patient Inst. Decision time for Depature: 16:57 Referrals: AMADO MACDONALD,LOCAL PHYSICIAN (PCP) Primary Care Physician Patient Instructions: Skin Rash Add. Discharge Instructions: 1. Apply the cream once, leave it in place and wash it off after 12 hours. Follow-up with your doctor next week. If you do not have a doctor you should see the [facility]. All discharge instructions reviewed with patient and/or family. Voiced understanding. Scripts Permethrin (Permethrin) 60 Gm Cream..g. 60 GM TP ONCE, #1 TUBE Prov: JHONATAN FERRARA APRN 11/13/17 JHONATAN FERRARA APRN Nov 13, 2017 16:58
[2017-11-13] MEDS ORDERED: PERM60CR4 TP (16:59)
[2017-11-13 17:05] VITALS: BP 100/86
== END 2017-11-13 17:05 | disposition home or self-care (01) ==
LOC: EDUNIT# 16:19 → ER 16:21
DX: L98.9 Disorder of the skin and subcutaneous tissue, unspecified (principal); Z90.89 Acquired absence of other organs
CPT/HCPCS: 99283

== ENCOUNTER 2018-02-03 15:55 | Emergency (ER) | payer SELFPAY ==
[~2018-02-03] VITALS: Ht 144.8 cm; Wt 38.6 kg
[~2018-02-03 15:55] MED LIST changes: +PERM60CR4 TP
--- NOTE | 2018-02-03 16:54 | ED Neurological Problem ---
General Chief Complaint: Altered Mental Status Stated Complaint: POSSIBLE DRUG ABUSE Nursing Triage Note: PT BROUGHT IN BY GRANDPARENST WITH COMPLAINT OF ALTERED MENTAL STATUS. GRANDPARENTS STATE SHE HAS BEEN OUT OF IT FOR THE LAST FEW DAYS. STATES SHE USED TO DO METH, BUT HAS BEEN CLEAN FOR APPROXIMATELY 6-8 MONTHS. Nursing Sepsis Screen: No Definite Risk Source: patient Exam Limitations: no limitations (RADHA MCGRAW MD) History of Present Illness Date Seen by Provider: Feb 03, 2018 Time Seen by Provider: 16:32 Initial Comments Patient is here with grandparents who report that she is not acting right and has not for the last couple of days. Does have history of methamphetamine abuse but has posted been clean for the last 6-8 months. Patient is not really answering questions. Eyes open and does move all extremities. She is able to sit up and walk but does not really talk. Occasionally she will mumble yes or no. She does seem to follow directions okay. She is not forthcoming on her story. When asked if she is using drugs again she states no. She states no to if she has slept in the last 3 days. Did say that she wants Jonathan. Timing/Duration: other (3 days) Severity: moderate Associated Symptoms: confusion (RADHA MCGRAW MD) Allergies and Home Medications Allergies Coded Allergies: NKANo Known Allergies (Unverified Allergy, Mild, 10/28/08) Home Medications Alprazolam 0.25 Mg Tablet, 0.25 MG PO TID PRN for ANXIETY Prescribed by: PATRICIA MORRIS on 02/16/15 0247 Ondansetron 4 Mg Tab.rapdis, 4 MG PO Q6H PRN for NAUSEA/VOMITING Prescribed by: LUCAS FRANCO on 01/01/16 1940 Permethrin 60 Gm Cream..g., 60 GM TP ONCE Prescribed by: JHONATAN FERRARA on 11/13/17 1659 Sulfamethoxazole/Trimethoprim 1 Each Tablet, 1 EACH PO BID Prescribed by: JHONATAN FERRARA on 08/15/17 2972 Patient Home Medication List Home Medication List Reviewed: Yes (RADHA MCGRAW MD) Review of Systems Review of Systems Constitutional: see HPI Review of systems due to altered mental status (RADHA MCGRAW MD) Past Dkzngwo-Bjwegq-Bdkubb Hx Past Med/Social Hx: Reviewed Nursing Past Med/Soc Hx (RADHA MCGRAW MD) Patient Social History Alcohol Use: Denies Use Recreational Drug Use: Yes Smoking Status: Current Everyday Smoker Type Used: Cigarettes Recent Foreign Travel: No Contact w/Someone Who Travel: No Recent Infectious Disease Expo: No Recent Hopitalizations: No (RADHA MCGARW MD) Immunizations Up To Date Tetanus Booster (TDap): Unknown PED Vaccines UTD: Yes (RADHA MCGRAW MD) Seasonal Allergies Seasonal Allergies: No (RADHA MCGRAW MD) Past Medical History Surgeries: Yes Adenoidectomy, Tonsillectomy Respiratory: No Cardiac: Yes (TACHYCARDIA--HEART RATE ALWAYS [id number] [employer]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 1- "NORMAL") Neurological: No Reproductive Disorders: No Female Reproductive Disorders: Denies Gastrointestinal: No Musculoskeletal: No Endocrine: No Cancer: No Psychosocial: No Integumentary: No Blood Disorders: No Adverse Reaction/Blood Tranf: No (RADHA MCGRAW MD) Family Medical History Reviewed Nursing Family Hx (RADHA MCGRAW MD) No Pertinent Family Hx (RADHA MCGRAW MD) Physical Exam Vital Signs Vital Signs - First Documented 02/03/18 16:16 Temp 97.3 Pulse 97 Resp 20 B/P (MAP) 115/95 (102) Pulse Ox 99 O2 Delivery Room Air (NAHOMI CHOPRA) Vital Signs Capillary Refill : Less Than 3 Seconds (RADHA MCGRAW MD) Height, Weight, BMI Height: 4'9.00" Weight: 85lbs. oz. 38.047133xj; 19.47 BMI Method:Stated General Appearance: WD/WN, no apparent distress HEENT: PERRL/EOMI, TMs normal, pharynx normal Neck: full range of motion, supple Respiratory: lungs clear, normal breath sounds Cardiovascular: no murmur, tachycardia Peripheral Pulses: 2+ Dorsalis Pedis (R), 2+ Left Dors-Pedis (L), 2+ Radial Pulses (R), 2+ Radial Pulses (L) Gastrointestinal: non tender, soft Back: normal inspection, no CVA tenderness, no vertebral tenderness Extremities: non-tender, normal inspection Neurologic/Psychiatric: alert, depressed affect, disoriented x 3, other (does not answer orientation questions) Coordination/Gait: normal gait Motor/Sensory: other (unable to determine) Skin: normal color, warm/dry, other (no obvious track velazquez to arms.) (RADHA MCGRAW MD) Progress/Results/Core Measures Results/Orders Lab Results Laboratory Tests Test 02/03/18 17:05 02/03/18 18:51 Range/Units White Blood Count 9.7 4.3-11.0 10^3/uL Red Blood Count 5.17 4.35-5.85 10^6/uL Hemoglobin 15.3 11.5-16.0 G/DL Hematocrit 45 35-52 % Mean Corpuscular Volume 87 80-99 FL Mean Corpuscular Hemoglobin 30 25-34 PG Mean Corpuscular Hemoglobin Concent 34 32-36 G/DL Red Cell Distribution Width 11.8 10.0-14.5 % Platelet Count 393 130-400 10^3/uL Mean Platelet Volume 9.6 7.4-10.4 FL Neutrophils (%) (Auto) 72 42-75 % Lymphocytes (%) (Auto) 18 12-44 % Monocytes (%) (Auto) 7 0-12 % Eosinophils (%) (Auto) 3 0-10 % Basophils (%) (Auto) 0 0-10 % Neutrophils # (Auto) 7.0 1.8-7.8 X 10^3 Lymphocytes # (Auto) 1.8 1.0-4.0 X 10^3 Monocytes # (Auto) 0.7 0.0-1.0 X 10^3 Eosinophils # (Auto) 0.3 0.0-0.3 10^3/uL Basophils # (Auto) 0.0 0.0-0.1 10^3/uL Sodium Level 140 135-145 MMOL/L Potassium Level 4.9 3.6-5.0 MMOL/L Chloride Level 101 98-107 MMOL/L Carbon Dioxide Level 27 21-32 MMOL/L Anion Gap 12 5-14 MMOL/L Blood Urea Nitrogen 12 7-18 MG/DL Creatinine 0.87 0.60-1.30 MG/DL Estimat Glomerular Filtration Rate > 60 BUN/Creatinine Ratio 14 Glucose Level 102 70-105 MG/DL Calcium Level 10.7 H 8.5-10.1 MG/DL Corrected Calcium 8.5-10.1 MG/DL Total Bilirubin 0.4 0.1-1.0 MG/DL Aspartate Amino Transf (AST/SGOT) 16 5-34 U/L Alanine Aminotransferase (ALT/SGPT) 13 0-55 U/L Alkaline Phosphatase 92 40-136 U/L Total Protein 8.1 6.4-8.2 GM/DL Albumin 4.9 H 3.2-4.5 GM/DL Thyroid Stimulating Hormone (TSH) 0.67 0.35-4.94 UIU/ML Salicylates Level < 5.0 L 5.0-20.0 MG/DL Acetaminophen Level < 10 L 10-30 UG/ML Serum Alcohol < 10 <10 MG/DL Urine Color YELLOW Urine Clarity CLEAR Urine pH 5 5-9 Urine Specific [facility] 1.020 1.016-1.022 Urine Protein NEGATIVE NEGATIVE Urine Glucose (UA) NEGATIVE NEGATIVE Urine Ketones 2+ H NEGATIVE Urine Nitrite NEGATIVE NEGATIVE Urine Bilirubin NEGATIVE NEGATIVE Urine Urobilinogen NORMAL NORMAL MG/DL Urine Leukocyte Esterase 1+ H NEGATIVE Urine RBC (Auto) NEGATIVE NEGATIVE Urine RBC NONE /HPF Urine WBC RARE /HPF Urine Squamous Epithelial Cells 5-10 /HPF Urine Crystals NONE /LPF Urine Bacteria NONE /HPF Urine Casts NONE /LPF Urine Mucus NEGATIVE /LPF Urine Culture Indicated NO Urine Opiates Screen NEGATIVE NEGATIVE Urine Oxycodone Screen NEGATIVE NEGATIVE Urine Methadone Screen NEGATIVE NEGATIVE Urine Propoxyphene Screen NEGATIVE NEGATIVE Urine Barbiturates Screen NEGATIVE NEGATIVE Ur Tricyclic Antidepressants Screen NEGATIVE NEGATIVE Urine Phencyclidine Screen NEGATIVE NEGATIVE Urine Amphetamines Screen POSITIVE H NEGATIVE Urine Methamphetamines Screen POSITIVE H NEGATIVE Urine Benzodiazepines Screen NEGATIVE NEGATIVE Urine Cocaine Screen NEGATIVE NEGATIVE Urine Cannabinoids Screen NEGATIVE NEGATIVE (NAHOMI CHOPRA) Medications Given in ED Current Medications Medications Dose Ordered Sig/Zhou Route Start Time Stop Time Status Last Admin Dose Admin Olanzapine 5 mg ONCE ONCE PO 02/03/18 16:45 02/03/18 16:46 DC 02/03/18 17:00 5 MG Sodium Chloride 1,000 ml @ 0 mls/hr Q0M ONCE IV 02/03/18 16:24 02/03/18 16:26 DC 02/03/18 17:11 1,000 MLS/HR (NAHOMI CHOPRA) Vital Signs/I&O 02/03/18 16:16 Temp 97.3 Pulse 97 Resp 20 B/P (MAP) 115/95 (102) Pulse Ox 99 O2 Delivery Room Air (NAHOMI CHOPRA) Blood Pressure Mean: 102 Progress Progress Note : Progress Note Seen and evaluated. IV, labs, UA, UDS, normal saline 1 L bolus ordered. Patient is refusing IV. Zyprexa Zydis 5 mg by mouth ordered. (RADHA MCGRAW MD) Progress Note : Time: 19:25 Progress Note Have met with and reviewed the patient's history based on the previous physician 's records, attentive grandmother and agrees that there is no medical pathology here but merely her somnolent state seems to be more from her methamphetamine ingestion recently. She told the previous provider she had spent 3 or 4 days without sleep until now seems like she is going to spend the next several days making up for that. She sleeping peacefully but easily aroused and smiles and does not give much history or answer any questions more than one word at this time. We'll allow her to go home with her family and encourage fluids and sleep. (NAHOMI CHOPRA) Departure Impression Primary Impression: Methamphetamine abuse, episodic Disposition: 01 HOME, SELF-CARE Condition: Stable Departure-Patient Inst. Decision time for Depature: 19:27 (NAHOMI CHOPRA) Referrals: NO,LOCAL PHYSICIAN (PCP/Family) Primary Care Physician Patient Instructions: Drug Abuse and Drug Addiction (DC) Add. Discharge Instructions: Take her home doctor and get some sleep. Encourage lots of fluids and have them at the bedside. Keep her safe. After she wakes up you can reapproach the conversation about outpatient or inpatient addiction treatment through [facility] or [facility] addiction treatment center. All discharge instructions reviewed with patient and/or family. Voiced understanding. Copy Copies To 1: AMADO MACDONALD TIMOTHY D MD Feb 03, 2018 16:54 NAHOMI CHOPRA Feb 03, 2018 19:28
[2018-02-03] MEDS: OLANZapine 5 MG ODT (ZyPREXA ZYDIS) PO ONE (17:00)
[2018-02-03] MEDS: NS IV 1000 ML 1,000 ML IV ONE (17:11)
[2018-02-03 17:13] LABS: BASOPHILS % (AUTO) 0 % (0-10); EOSINOPHILS # (AUTO) 0.3 10^3/uL (0.0-0.3); EOSINOPHILS % (AUTO) 3 % (0-10); HEMATOCRIT 45 % (35-52); HEMOGLOBIN 15.3 G/DL (11.5-16.0); LYMPHOCYTES # (AUTO) 1.8 X 10^3 (1.0-4.0); LYMPHOCYTES % (AUTO) 18 % (12-44); MEAN CORPUSCULAR HEMOGLOBIN 30 PG (25-34); MEAN CORPUSCULAR HGB CONC 34 G/DL (32-36); MEAN CORPUSCULAR VOLUME 87 FL (80-99); MEAN PLATELET VOLUME 9.6 FL (7.4-10.4); MONOCYTES # (AUTO) 0.7 X 10^3 (0.0-1.0); MONOCYTES % (AUTO) 7 % (0-12); NEUTROPHILS % (AUTO) 72 % (42-75); PLATELET COUNT 393 10^3/uL (130-400); RED BLOOD COUNT 5.17 10^6/uL (4.35-5.85); RED CELL DISTRIBUTION WIDTH 11.8 % (10.0-14.5); WHITE BLOOD COUNT 9.7 10^3/uL (4.3-11.0)
[2018-02-03 17:45] LABS: ALANINE AMINOTRANSFERASE 13 U/L (0-55); ALBUMIN 4.9 GM/DL (3.2-4.5); ALKALINE PHOSPHATASE 92 U/L (40-136); BILIRUBIN,TOTAL 0.4 MG/DL (0.1-1.0); BUN/CREATININE RATIO 14; CALCIUM 10.7 MG/DL (8.5-10.1); CARBON DIOXIDE 27 MMOL/L (21-32); CHLORIDE 101 MMOL/L (98-107); CREATININE SERUM 0.87 MG/DL (0.60-1.30); GFR ESTIMATED > 60; GLUCOSE 102 MG/DL (70-105); POTASSIUM 4.9 MMOL/L (3.6-5.0); SODIUM 140 MMOL/L (135-145); TOTAL PROTEIN 8.1 GM/DL (6.4-8.2)
[2018-02-03 17:46] LABS: ACETAMINOPHEN < 10 UG/ML (10-30)
[2018-02-03 19:02] LABS: BILIRUBIN,URINE NEGATIVE (NEGATIVE); CLARITY,URINE CLEAR; COLOR,URINE YELLOW; GLUCOSE, URINE (UA) NEGATIVE (NEGATIVE); KETONES,URINE 2+ (NEGATIVE); LEUKOCYTE ESTERASE ,URINE 1+ (NEGATIVE); NITRITE,URINE NEGATIVE (NEGATIVE); PH,URINE 5 (5-9); PROTEIN,URINE NEGATIVE (NEGATIVE); UROBILINOGEN,URINE NORMAL (NORMAL)
[2018-02-03 19:08] LABS: WBC,URINE RARE /HPF
[2018-02-03 19:13] LABS: BENZODIAZEPINES SCREEN URINE NEGATIVE (NEGATIVE); COCAINE SCREEN URINE NEGATIVE (NEGATIVE)
[2018-02-03 19:14] LABS: AMPHETAMINE SCREEN, URINE POSITIVE (NEGATIVE); BARBITURATE SCREEN URINE NEGATIVE (NEGATIVE); CANNABINOID SCREEN, URINE NEGATIVE (NEGATIVE); METHADONE STAT NEGATIVE (NEGATIVE); METHAMPHETAMINE SCREEN URINE S POSITIVE (NEGATIVE); OPIATE SCREEN URINE NEGATIVE (NEGATIVE); OXYCODONE STAT NEGATIVE (NEGATIVE); PROPOXYPHENE STAT NEGATIVE (NEGATIVE); TRICYCLIC ANTIDEPRESSANTS SCRE NEGATIVE (NEGATIVE)
[2018-02-03 20:00] VITALS: BP 115/95
== END 2018-02-03 20:00 | disposition home or self-care (01) ==
LOC: EDUNIT# 15:55 → ER 15:57
DX: F15.10 Other stimulant abuse, uncomplicated (principal); F17.210 Nicotine dependence, cigarettes, uncomplicated; Z90.89 Acquired absence of other organs
CPT/HCPCS: 36415; 51701; 80053; 80306; 80320; 80329; 81000; 84443; 84703; 85025; 96360

== ENCOUNTER 2021-12-14 23:06 | Emergency (ER) | payer SELFPAY ==
[~2021-12-14] VITALS: Ht 147 cm; Wt 35.8 kg
[~2021-12-14 23:06] MED LIST changes: -SULF1TAB35 PO; +SULF1TAB38 PO
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
[2021-12-15] MEDS ORDERED: ONDANSETRON 4 MG (ZOFRAN) ORAL DISSOLVE TAB PO ONE (00:45)
[2021-12-15] MEDS ORDERED: KETOROLAC 60 MG/2 ML VIAL IM ONE (00:45)
[2021-12-15] MEDS ORDERED: ONDA4TAB11 PO (03:10)
[2021-12-15 03:18] VITALS: BP 140/101
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
== END 2021-12-15 03:18 | disposition home or self-care (01) ==
LOC: EDUNIT# 23:06 → ER 23:12
DX: S06.0X0A Concussion without loss of consciousness, initial encounter (principal); S69.92XA Unspecified injury of left wrist, hand and finger(s), initial encounter; Z28.310 Unvaccinated for COVID-19; Y04.8XXA Assault by other bodily force, initial encounter
CPT/HCPCS: 70450; 72125; 99281

== ENCOUNTER 2022-06-30 10:34 | Emergency (ER) | payer SELFPAY ==
[~2022-06-30] VITALS: Ht 145 cm; Wt 40.8 kg
[2022-06-30 11:25] VITALS: BP 126/98
[2022-06-30] MEDS ORDERED: NS IV 1000 ML 1,000 ML IV STA (11:34)
--- NOTE | 2022-06-30 11:40 | ED Cough/URI ---
General Chief Complaint: Cough/Cold/Flu Symptoms Stated Complaint: COUGH | PAIN WHILE URINATING Nursing Triage Note: PT AMB TO RM 9 WITH COMPLAINT OF COUGH FOR A WEEK AND BLADDER PAIN. Source: patient Exam Limitations: no limitations (JAG PENA) History of Present Illness Date Seen by Provider: Jun 30, 2022 Time Seen by Provider: 11:36 Initial Comments Patient is a 27-year-old female who presents ED with flulike symptoms. She reports body aches, fatigue, generalized weakness, cough, runny nose, sore throat and diarrhea over the past week. She states symptoms have gotten worse over the past few days. She reports clear sputum production with her cough. No wheezing, chest pain or shortness of breath. Denies of any abdominal pain. Fever at home as high as 101. Started taking cough medication yesterday. She also reports suprapubic discomfort with frequent urination, pain with urination for the past week. Denies of any vaginal bleeding or vaginal discharge. Started developing some back discomfort over the past few days as well. Headache and nasal congestion. Denies neck pain, abdominal pain, visual changes, ear pain, vomiting (JAG PENA) Allergies and Home Medications Allergies Coded Allergies: NKANo Known Allergies (Unverified Allergy, Mild, 10/28/08) Patient Home Medication List Home Medication List Reviewed: Yes (JAG PENA) Alprazolam (Xanax) 0.25 Mg Tablet, 0.25 MG PO TID PRN for ANXIETY Prescribed by: PATRICIA MORRIS on 02/16/15 0247 Cephalexin (Cephalexin) 500 Mg Tablet, 500 MG PO BID Prescribed by: RADHA SOUSA on 06/30/22 1314 Ondansetron (Ondansetron Odt) 4 Mg Tab.rapdis, 4 MG PO Q6H PRN for NAUSEA/VOMITING Prescribed by: LUCAS FRANCO on 01/01/16 194 Ondansetron (Ondansetron Odt) 4 Mg Tab.rapdis, 4 MG PO Q6H PRN for NAUSEA/VOMITING Prescribed by: NAHOMI CHOPRA on 12/15/21 0310 Permethrin (Permethrin) 60 Gm Cream..g., 60 GM TP ONCE Prescribed by: JHONATAN FERRARA on 11/13/17 1659 Sulfamethoxazole/Trimethoprim (Bactrim Ds Tablet) 1 Each Tablet, 1 EACH PO BID Prescribed by: JHONATAN FERRARA on 08/15/17 1732 Review of Systems Review of Systems Constitutional: chills; No diaphoresis; fever, malaise, weakness EENTM: throat pain; No hearing loss, No ear pain, No double vision Cardiovascular: No chest pain Gastrointestinal: No abdominal pain; diarrhea; No nausea, No vomiting Genitourinary: No decreased output, No discharge; dysuria, frequency, pain Musculoskeletal: No back pain Skin: No change in color (JAG PENA) All Other Systems Reviewed Negative Unless Noted: Yes (JAG PENA) Past Yaxofjf-Ymvmis-Elwpru Hx Patient Social History Tobacco Use?: Yes Tobacco type used: Cigarettes Smoking Status: Current Everyday Smoker Use of E-Cig and/or Vaping dev: No Substance use?: No Alcohol Use?: No Pt feels they are or have been: No (JAG PENA) Immunizations Up To Date Tetanus Booster (TDap): Unknown PED Vaccines UTD: Yes (JAG PENA) Seasonal Allergies Seasonal Allergies: No (JAG PENA) Past Medical History Surgeries: Yes Adenoidectomy, Tonsillectomy Respiratory: No Cardiac: Yes (TACHYCARDIA--HEART RATE ALWAYS 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 oz. 38.452759mt; 19.00 BMI Method:Stated General Appearance: WD/WN, no apparent distress Eyes: Bilateral Eye Normal Inspection, Bilateral Eye PERRL, Bilateral Eye EOMI HEENT: PERRL/EOMI, other (Oropharynx with erythema petechiae without exudate. Bilateral cervical adenopathy.) Neck: non-tender, full range of motion, supple Respiratory: chest non-tender, lungs clear, normal breath sounds, no respiratory distress Cardiovascular: no gallop, no JVD, tachycardia Gastrointestinal: normal bowel sounds, non tender, soft, no organomegaly Extremities: normal range of motion, non-tender, normal inspection, no pedal edema, no calf tenderness Neurologic/Psychiatric: brand lead II-XII nml as tested, no motor/sensory deficits, alert, normal mood/affect, oriented x 3 Skin: normal color, warm/dry (JAG PENA) Progress/Results/Core Measures Suspected Sepsis SIRS Temperature: Pulse: 131 Respiratory Rate: 22 Laboratory Tests 06/30/22 11:55: White Blood Count 6.2 Blood Pressure 126 /98 Mean: 107 Laboratory Tests 06/30/22 11:55: Creatinine 0.88, Platelet Count 314, Total Bilirubin 0.2 (JAG PENA) Results/Orders Lab Results Laboratory Tests Test 06/30/22 11:38 06/30/22 11:43 06/30/22 11:55 Range/Units Urine Color YELLOW Urine Clarity CLEAR Urine pH 6.0 5-9 Urine Specific [place] 1.015 L 1.016-1.022 Urine Protein NEGATIVE NEGATIVE Urine Glucose (UA) NEGATIVE NEGATIVE Urine Ketones NEGATIVE NEGATIVE Urine Nitrite NEGATIVE NEGATIVE Urine Bilirubin NEGATIVE NEGATIVE Urine Urobilinogen 1.0 < = 1.0 MG/DL Urine Leukocyte Esterase NEGATIVE NEGATIVE Urine RBC (Auto) NEGATIVE NEGATIVE Urine RBC 0-2 /HPF Urine WBC 0-2 /HPF Urine Squamous Epithelial Cells 5-10 /HPF Urine Crystals NONE /LPF Urine Bacteria FEW H /HPF Urine Casts NONE /LPF Urine Mucus SMALL H /LPF Urine Culture Indicated YES Urine Opiates Screen NEGATIVE NEGATIVE Urine Oxycodone Screen NEGATIVE NEGATIVE Urine Methadone Screen NEGATIVE NEGATIVE Urine Propoxyphene Screen NEGATIVE NEGATIVE Urine Barbiturates Screen NEGATIVE NEGATIVE Ur Tricyclic Antidepressants Screen NEGATIVE NEGATIVE Urine Phencyclidine Screen NEGATIVE NEGATIVE Urine Amphetamines Screen POSITIVE H NEGATIVE Urine Methamphetamines Screen POSITIVE H NEGATIVE Urine Benzodiazepines Screen NEGATIVE NEGATIVE Urine Cocaine Screen NEGATIVE NEGATIVE Urine Cannabinoids Screen POSITIVE H NEGATIVE Influenza Type A (RT-PCR) Not Detected Not Detecte Influenza Type B (RT-PCR) Not Detected Not Detecte SARS-CoV-2 RNA (RT-PCR) Not Detected Not Detecte Group A Streptococcus Screen NEGATIVE NEGATIVE White Blood Count 6.2 4.3-11.0 10^3/uL Red Blood Count 5.31 H 3.80-5.11 10^6/uL Hemoglobin 15.8 11.5-16.0 g/dL Hematocrit 46 35-52 % Mean Corpuscular Volume 87 80-99 fL Mean Corpuscular Hemoglobin 30 25-34 pg Mean Corpuscular Hemoglobin Concent 34 32-36 g/dL Red Cell Distribution Width 11.8 10.0-14.5 % Platelet Count 314 130-400 10^3/uL Mean Platelet Volume 9.8 9.0-12.2 fL Immature Granulocyte % (Auto) 0 % Neutrophils (%) (Auto) 59 42-75 % Lymphocytes (%) (Auto) 26 12-44 % Monocytes (%) (Auto) 13 H 0-12 % Eosinophils (%) (Auto) 2 0-10 % Basophils (%) (Auto) 0 0-10 % Neutrophils # (Auto) 3.7 1.8-7.8 10^3/uL Lymphocytes # (Auto) 1.6 1.0-4.0 10^3/uL Monocytes # (Auto) 0.8 0.0-1.0 10^3/uL Eosinophils # (Auto) 0.1 0.0-0.3 10^3/uL Basophils # (Auto) 0.0 0.0-0.1 10^3/uL Immature Granulocyte # (Auto) 0.0 0.0-0.1 10^3/uL Sodium Level 140 135-145 MMOL/L Potassium Level 3.4 L 3.6-5.0 MMOL/L Chloride Level 102 98-107 MMOL/L Carbon Dioxide Level 27 21-32 MMOL/L Anion Gap 11 5-14 MMOL/L Blood Urea Nitrogen 7 7-18 MG/DL Creatinine 0.88 0.60-1.30 MG/DL Estimat Glomerular Filtration Rate 92 BUN/Creatinine Ratio 8 Glucose Level 95 70-105 MG/DL Calcium Level 10.0 8.5-10.1 MG/DL Corrected Calcium 8.5-10.1 MG/DL Total Bilirubin 0.2 0.1-1.0 MG/DL Aspartate Amino Transf (AST/SGOT) 26 5-34 U/L Alanine Aminotransferase (ALT/SGPT) 38 0-55 U/L Alkaline Phosphatase 113 40-136 U/L C-Reactive Protein High Sensitivity 3.02 H 0.00-0.50 MG/DL Total Protein 8.2 6.4-8.2 GM/DL Albumin 4.6 H 3.2-4.5 GM/DL (ELOISA JULIO MD) Micro Results Microbiology 06/30/22 Throat Culture - Preliminary, Resulted No Beta Strep isolated (ELOISA JULIO MD) My Orders Orders - ELOISA JULIO MD Ua Culture If Indicated (06/30/22 10:45) Urine Culture (06/30/22 11:38) (ELOISA JULIO MD) Vital Signs/I&O 06/30/22 06/30/22 11:25 13:20 Temp 38.0 Pulse 131 126 Resp 22 20 B/P (MAP) 126/98 (107) Pulse Ox 99 97 O2 Delivery Room Air Room Air (ELOISA JULIO MD) Vital Signs/I&O Capillary Refill : (JAG PENA) Blood Pressure Mean: 107 Departure Communication (PCP) Patient with flulike symptoms and urinary symptoms over the past week. History of methamphetamine use last used yesterday evening. Patient reports fever at home. Patient was tachycardic and febrile on arrival. Differential diagnosis of viral syndrome, UTI, pneumonia. CBC, CMP, CRP, chest x-ray, COVID influenza, urinalysis and drug screen. CBC, CMP unremarkable besides a potassium of 3.4, CRP at 3. Chest x-ray was negative for pneumonia. No evidence of wheezing. No abdominal tenderness. Due to the tachycardia patient was given a liter of fluid. Urinalysis with few bacteria without strong evidence of UTI. She does report some urinary symptoms. Tested positive for methamphetamine with last use yesterday. This could be the result of her tachycardia versus infection versus fever. Patient fever improved without much improvement of her heart rate. She was given a liter of fluid without much improvement of her heart rate. Reviewed previous ER visits, H&P noted history of fast heart rate in the past 110-120 bpm. She had a heart rate between 115 to 130 bpm. Discussed providing a low- dose Lopressor 5 mg IV but patient refused. She states she has a known history of tachycardia since she was a younger. She has no current chest pain or shortness of breath. Did discuss stopping the meth which could be associated with her fast heart rate however further cardiac evaluation is needed due to her history. COVID and influenza negative. Suspect viral URI. Discussed conservative treatment such as anti-inflammatories. Due to the urinary symptoms and complaint patient will be discharged with Keflex. Negative for . Bedside was negative. return precautions were discussed with patient. (JAG PENA) Impression Primary Impression: Upper respiratory infection Additional Impressions: Tachycardia Methamphetamine use Disposition: 01 HOME, SELF-CARE Condition: Stable Departure-Patient Inst. Decision time for Depature: 12:45 (JAG PENA) Referrals: [facility] [place] (PCP/Family) Primary Care Physician STEFANIE CABRAL MD Patient Instructions: Upper Respiratory Infection ED Scripts Cephalexin (Cephalexin) 500 Mg Tablet 500 MG PO BID for 7 Days, #14 TAB Prov: JAG PENA 06/30/22 ATTENDING PHYSICIAN NOTE: I was physically present as attending physician in the emergency department during the care of this patient, but I was not directly involved in the decision making or delivery of care for this patient. (ELOISA JULIO MD) JAG PENA Jun 30, 2022 11:40 ELOISA JULIO MD Jul 01, 2022 08:58
[2022-06-30 11:45] LABS: BILIRUBIN,URINE NEGATIVE (NEGATIVE); CLARITY,URINE CLEAR; COLOR,URINE YELLOW; GLUCOSE, URINE (UA) NEGATIVE (NEGATIVE); KETONES,URINE NEGATIVE (NEGATIVE); LEUKOCYTE ESTERASE ,URINE NEGATIVE (NEGATIVE); NITRITE,URINE NEGATIVE (NEGATIVE); PROTEIN,URINE NEGATIVE (NEGATIVE)
[2022-06-30] MEDS ORDERED: IBUPROFEN TABLET 200 MG TAB PO ONE (11:45)
--- NOTE | 2022-06-30 11:47 | Diagnostic Imaging Report ---
CHEST 1 VIEW, AP/PA ONLY Indication: Cough Comparison: None available. Findings: No focal airspace disease in the visualized lungs. No pleural effusion or pneumothorax. Normal cardiomediastinal silhouette. Impression: 1. No acute cardiopulmonary process by portable radiography. Dictated by: Dictated on workstation # [id number]
[2022-06-30 11:55] LABS: RBC,URINE 0-2 /HPF
[2022-06-30 11:56] LABS: BACTERIA,URINE FEW /HPF; WBC,URINE 0-2 /HPF
[2022-06-30 12:07] LABS: BASOPHILS % (AUTO) 0 % (0-10); EOSINOPHILS # (AUTO) 0.1 10^3/uL (0.0-0.3); EOSINOPHILS % (AUTO) 2 % (0-10); HEMATOCRIT 46 % (35-52); HEMOGLOBIN 15.8 g/dL (11.5-16.0); LYMPHOCYTES # (AUTO) 1.6 10^3/uL (1.0-4.0); LYMPHOCYTES % (AUTO) 26 % (12-44); MEAN CORPUSCULAR HEMOGLOBIN 30 pg (25-34); MEAN CORPUSCULAR HGB CONC 34 g/dL (32-36); MEAN CORPUSCULAR VOLUME 87 fL (80-99); MEAN PLATELET VOLUME 9.8 fL (9.0-12.2); MONOCYTES # (AUTO) 0.8 10^3/uL (0.0-1.0); MONOCYTES % (AUTO) 13 % (0-12); NEUTROPHILS # (AUTO) 3.7 10^3/uL (1.8-7.8); NEUTROPHILS % (AUTO) 59 % (42-75); PLATELET COUNT 314 10^3/uL (130-400); WHITE BLOOD COUNT 6.2 10^3/uL (4.3-11.0)
[2022-06-30 12:19] LABS: ALBUMIN 4.6 GM/DL (3.2-4.5); CHLORIDE 102 MMOL/L (98-107); POTASSIUM 3.4 MMOL/L (3.6-5.0); SODIUM 140 MMOL/L (135-145)
[2022-06-30 12:21] LABS: GLUCOSE 95 MG/DL (70-105); TOTAL PROTEIN 8.2 GM/DL (6.4-8.2)
[2022-06-30 12:22] LABS: CARBON DIOXIDE 27 MMOL/L (21-32)
[2022-06-30 12:23] LABS: BILIRUBIN,TOTAL 0.2 MG/DL (0.1-1.0)
[2022-06-30 12:24] LABS: ALKALINE PHOSPHATASE 113 U/L (40-136)
[2022-06-30 12:25] LABS: CREATININE SERUM 0.88 MG/DL (0.60-1.30); GFR ESTIMATED 92
[2022-06-30 12:26] LABS: BUN/CREATININE RATIO 8
[2022-06-30 12:28] LABS: ALANINE AMINOTRANSFERASE 38 U/L (0-55)
[2022-06-30 13:04] LABS: AMPHETAMINE SCREEN, URINE POSITIVE (NEGATIVE); BARBITURATE SCREEN URINE NEGATIVE (NEGATIVE); BENZODIAZEPINES SCREEN URINE NEGATIVE (NEGATIVE); CANNABINOID SCREEN, URINE POSITIVE (NEGATIVE); COCAINE SCREEN URINE NEGATIVE (NEGATIVE); METHADONE STAT NEGATIVE (NEGATIVE); OPIATE SCREEN URINE NEGATIVE (NEGATIVE); OXYCODONE STAT NEGATIVE (NEGATIVE); PROPOXYPHENE STAT NEGATIVE (NEGATIVE); TRICYCLIC ANTIDEPRESSANTS SCRE NEGATIVE (NEGATIVE)
[2022-06-30] MEDS ORDERED: CEPH500T PO (13:14)
== END 2022-06-30 13:20 | disposition home or self-care (01) ==
LOC: EDUNIT# 10:34 → ER 10:36
DX: J06.9 Acute upper respiratory infection, unspecified (principal); F15.90 Other stimulant use, unspecified, uncomplicated; R00.0 Tachycardia, unspecified; F17.210 Nicotine dependence, cigarettes, uncomplicated; Z20.822 Contact with and (suspected) exposure to COVID-19
CPT/HCPCS: 36415; 71045; 80053; 80306; 81000; 84703; 85025; 86141; 87088; 87430; 87636

== ENCOUNTER 2022-10-13 09:47 | Emergency (ER) | payer SELFPAY ==
[~2022-10-13] VITALS: Ht 146 cm; Wt 38.0 kg
[~2022-10-13 09:47] MED LIST changes: +CEPH500T PO
--- NOTE | 2022-10-13 10:12 | ED Upper Extremity ---
General Chief Complaint: Upper Extremity Stated Complaint: LT HAND FINGER SWELLING Nursing Triage Note: PT STATES SECOND DIGIT ON LT HAND, STATES TRAUMA TO IT ABOUT A YR AGO, POPPED IT ABOUT 2 WKS AGO, NUMBNES IN BOTH HANDS Source: patient Exam Limitations: no limitations History of Present Illness Date Seen by Provider: Oct 13, 2022 Time Seen by Provider: 10:12 Initial Comments Patient with complaint of swelling to the PIP joint of the index finger to the left hand. She states she "jammed" it about a year ago and it has been painful the last year. She also complains of "numbness" and tingling to the whole hands bilaterally over the last several days and is concerned she may have carpal tunnel. No rashes. No recent injuries. Onset: last week Severity: mild Pain/Injury Location: left 2nd finger Modifying Factors: Worse With Movement Allergies and Home Medications Allergies Coded Allergies: NKANo Known Allergies (Unverified Allergy, Mild, 10/28/08) Patient Home Medication List Home Medication List Reviewed: Yes Alprazolam (Xanax) 0.25 Mg Tablet, 0.25 MG PO TID PRN for ANXIETY Prescribed by: PATRICIA MORRIS on 02/16/15 0247 Cephalexin (Cephalexin) 500 Mg Tablet, 500 MG PO BID Prescribed by: RADHA SOUSA on 06/30/22 1314 Ondansetron (Ondansetron Odt) 4 Mg Tab.rapdis, 4 MG PO Q6H PRN for NAUSEA/VOMIT ING Prescribed by: LUCAS FRANCO on 01/01/16 1940 Ondansetron (Ondansetron Odt) 4 Mg Tab.rapdis, 4 MG PO Q6H PRN for NAUSEA/VOMITING Prescribed by: NAHOMI CHOPRA on 12/15/21 0310 Permethrin (Permethrin) 60 Gm Cream..g., 60 GM TP ONCE Prescribed by: JHONATAN FERRARA on 11/13/17 1659 Sulfamethoxazole/Trimethoprim (Bactrim Ds Tablet) 1 Each Tablet, 1 EACH PO BID Prescribed by: JHONATAN FERRARA on 08/15/17 1732 Review of Systems Constitutional: see HPI Musculoskeletal: joint pain (left index finger pain; swollen joint) Skin: no symptoms reported Past Esvsnkr-Esrwtf-Igvowj Hx Patient Social History Tobacco Use?: Yes Tobacco type used: Cigarettes Smoking Status: Current Everyday Smoker Substance use?: No Alcohol Use?: No Immunizations Up To Date Tetanus Booster (TDap): Unknown PED Vaccines UTD: Yes Second COVID19 Vaccination [place]: YES Seasonal Allergies Seasonal Allergies: No Past Medical History Surgery/Hospitalization HX: HYPERTENSION, TACHYCARDIA, TONSILS Surgeries: Yes Adenoidectomy, Tonsillectomy Respiratory: No Cardiac: Yes (TACHYCARDIA--HEART RATE ALWAYS 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 oz. 38.268654ik; 17.00 BMI Method:Stated General Appearance: WD/WN, no apparent distress, thin Cardiovascular: regular rate, rhythm Respiratory: no respiratory distress, no accessory muscle use Shoulder: normal inspection, normal ROM Elbow/Forearm: normal inspection, normal ROM Wrist: Yes normal inspection, Yes normal ROM (negative Tinel's and phalen's) Hand: swelling (to prox IP joint - good ROM, no crepitance, no increased warmth or erythema) Neurologic/Tendon: normal sensation, normal motor functions, normal tendon functions Neurologic/Psychiatric: no motor/sensory deficits, alert, normal mood/affect, oriented x 3 Skin: normal color, warm/dry Progress/Results/Core Measures Results/Orders Vital Signs/I&O Blood Pressure Mean: 105 Progress Progress Note : Time: 10:15 Progress Note Patient seen and examined by me. Evaluation today includes PE. pertinent for mild swelling to the left index finger PIP joint. Not overly tender to palpation. No erythema. No wounds. INtact ROM. No muscle wasting appreciated in either hand. Neg Tinel's and neg Phalen's bilaterally. Normal radial pulses bilaterally. DDX based on H&P arthritis/ bilateral CTS. Consideration for imaging of the left index finger, however H&P do not support the need. Conservative management recommended (NSAIDS, ice) and follow up with PCP encouraged for further evaluation of possible CTS. Departure Impression Primary Impression: Finger deformity Disposition: 01 HOME, SELF-CARE Condition: Stable Departure-Patient Inst. Decision time for Depature: 10:20 Referrals: [facility] (PCP/Family) Primary Care Physician Patient Instructions: Finger Sprain ED Add. Discharge Instructions: You can continue to take over the counter Ibuprofen 2 pills (400mg) every 6 hours as needed for pain. Always take Ibuprofen with food. Ice to the left index finger will help with swelling, as well as keeping it elevated. Over the counter Diclofenac gel to the sore area may help with pain. Follow up with your primary care provider. Copy Copies To 1: AMADO MACDONALD KATHRYN M MD Oct 13, 2022 10:12
[2022-10-13 10:28] VITALS: BP 142/87
== END 2022-10-13 10:28 | disposition home or self-care (01) ==
LOC: EDUNIT# 09:47 → ER 09:49
DX: M20.002 Unspecified deformity of left finger(s) (principal); M79.89 Other specified soft tissue disorders; F17.210 Nicotine dependence, cigarettes, uncomplicated
CPT/HCPCS: 99281